=== PATIENT | female | born 1995 | race Caucasian/White ===

== ENCOUNTER 2021-05-17 09:06 | Emergency (ER) | payer BC ==
--- NOTE | 2021-05-17 09:15 | EDM.PDOC ---
ED HPI GENERAL MEDICAL PROBLEM - General Chief Complaint: Allergic Reaction Stated Complaint: ALLERGIC RX Time Seen by Provider: 05/17/21 09:14 Source of Information: Reports: Patient History Limitations: Reports: No Limitations - History of Present Illness INITIAL COMMENTS - FREE TEXT/NARRATIVE: 25-year-old female presents to the ED after being stung by an insect left anterior lateral lower thigh at about 0600 hrs. this morning.. This caused her to feel very short of breath with throat closure and feeling lightheaded within minutes of being stung. She did not see what stung her and she was stung through her clothing. She has had previous wasp stings with no serious reactions. She does not have asthma. At present she is still feeling lightheaded with thickening in her throat. Feeling slightly dizzy. She has not yet eaten today. She has not taken any Benadryl this morning. Onset: Today, Sudden Onset Date: 05/17/21 Onset Time: 06:00 Duration: Hour(s):, Constant. No: Getting Worse Location: Reports: Neck (Feeling throat some degree of throat closure dizzy lightheaded), Generalized Quality: Denies: Ache, Burning, Dull, Pressure, Same as Previous Episode, Sharp Severity: Moderate Improves with: Reports: None Worsens with: Reports: None Context: Reports: Other (Check standing likely hymenoptera likely wasp). Denies: Activity, Exercise, Lifting, Sick Contact, Trauma Associated Symptoms: Reports: Malaise, Shortness of Breath, Other (Throat closure). Denies: Confusion, Chest Pain, Cough, cough w sputum, Diaphoresis, Fever/Chills, Headaches, Nausea/Vomiting, Rash, Seizure, Syncope Treatments [employer]: Reports: Other (see below) (None.) - Related Data Allergies Allergy/AdvReac Type Severity Reaction Status Date / Time No Known Allergies Allergy Verified 05/17/21 09:14 Home Meds: Home Meds predniSONE [Prednisone] 20 mg PO BID #6 tablet 05/17/21 [Rx] ED ROS ALLERGIC REACTION - Review of Systems Review Of Systems: See Below Constitutional: Reports: Malaise. Denies: Fever, Chills HEENT: Reports: Throat Swelling (Feeling of throat closure.) Respiratory: Reports: Shortness of Breath ( Occultly swallowing.). Denies: Wheezing, Pleuritic Chest Pain, Cough, Sputum, Hemoptysis Cardiovascular: Reports: No Symptoms Endocrine: Reports: No Symptoms GI/Abdominal: Reports: No Symptoms. Denies: Diarrhea : Reports: No Symptoms Musculoskeletal: Reports: No Symptoms Skin: Reports: Other (Only redness and soreness at site of insect sting.) Neurological: Reports: No Symptoms Psychiatric: Reports: Anxiety Hematologic/Lymphatic: Reports: No Symptoms Immunologic: Reports: No Symptoms ED EXAM GENERAL NO PERIP PULSE - Physical Exam Exam: See Below Exam Limited By: No Limitations General Appearance: Alert, WD/WN, Anxious, Mild Distress, Other (Temperature is 36.4 degrees. Heart rate was 110 and sinus at the bedside. Respiratory to 16 with O2 sats of 98% room air. BP 1 6685.) Eye Exam: Bilateral Eye: Normal Inspection (No blepharal pallor. No scleral icterus.), Periorbital Changes (Slight swelling of her upper eyelids appreciated.) Nose: Normal Inspection Throat/Mouth: Normal Inspection, Normal Lips, Normal Oropharynx, Other Head: Atraumatic (Saundra and floor the mouth are normal. Tongue is not swollen.), Normocephalic Neck: Normal Inspection, Supple, Non-Tender, Full Range of Motion. No: Lymphadenopathy (L), Lymphadenopathy (R) Respiratory/Chest: No Respiratory Distress, Lungs Clear, Normal Breath Sounds, No Accessory Muscle Use. No: Wheezing Cardiovascular: Normal Peripheral Pulses, Regular Rate, Rhythm, No Edema, No Murmur, No Rub, Tachycardia GI/Abdominal: Normal Bowel Sounds, Soft, Non-Tender, No Organomegaly, No Mass, Pelvis Stable Extremities: Other (Light erythema and localized swelling left lower anterior lateral thigh at site of sting which is still) Neurological: Alert ( burning a good deal.), Oriented, CN II-XII Intact, Normal Cognition Psychiatric: Normal Mood, Anxious Skin Exam: Warm, Dry, Intact, Normal Color Course - Vital Signs Last Recorded V/S: Last Vital Signs Temp 36.4 C 05/17/21 09:12 Pulse 110 H 05/17/21 09:12 Resp 16 05/17/21 09:12 BP 166/85 H 05/17/21 09:12 Pulse Ox 98 05/17/21 09:12 - Orders/Labs/Meds Orders: Active Orders 24 hr Category Date Time Status Sodium Chloride 0.9% [Normal Saline] 1,000 ml Med 05/17/21 09:30 Active IV ASDIRECTED Medication Orders Sodium Chloride (Normal Saline) 1,000 mls @ 250 mls/hr IV ASDIRECTED TAMIKO Last Admin: 05/17/21 09:40 Dose: 250 mls/hr Documented by: MYRA Meds: Medications Generic Name Dose Route Start Last Admin Trade Name Freq PRN Reason Stop Dose Admin Sodium Chloride 1,000 mls @ 250 mls/hr 05/17/21 09:30 05/17/21 09:40 Normal Saline IV 250 mls/hr ASDIRECTED TAMIKO Administration Discontinued Medications Generic Name Dose Route Start Last Admin Trade Name Freq PRN Reason Stop Dose Admin Diphenhydramine HCl 25 mg 05/17/21 09:20 05/17/21 09:40 Diphenhydramine 50 Mg/Ml Sdv IVPUSH 05/17/21 09:21 25 mg ONETIME ONE Administration Famotidine 20 mg 05/17/21 09:19 05/17/21 09:42 Famotidine 20 Mg/2 Ml Sdv IVPUSH 05/17/21 09:20 20 mg ONETIME ONE Administration Methylprednisolone Sodium Succinate 125 mg 05/17/21 09:20 05/17/21 09:41 Methylprednisolone Sodium Succinate 125 Mg/2 Ml Sdv IVPUSH 05/17/21 09:21 125 mg ONETIME ONE Administration - Radiology Interpretation Free Text/Narrative:: 25-year-old female presents to the ED for evaluation of a unknown insect sting left lower anterior lateral thigh. She developed symptoms within a couple minutes of the sting feeling short of breath lightheaded dizzy and faint. Associated mild shortness of breath. Slight sting occurred around 0600 hrs. this morning and she did not see what stung her. She does have erythema and swelling left lateral thigh with a localized reaction suspicious for hymenoptera sting likely a wasp. Lungs were clear to auscultation percussion. Oropharynx is clear with no stridor and no swelling of the uvula tongue or floor the mouth. She'll be given Solu-Medrol 125 mg IV with Pepcid 20 mg IV and Benadryl 50 mg IV. - Re-Assessments/Exams Free Text/Narrative Re-Assessment/Exam: 05/17/21 10:00: She is not feeling any worse. No hives have broken out. She still feels a little bit of dyspnea. No further throat closure. Inspection of t he insect sting site still reveals a mild localized reaction without a wheal. Will monitor for another half hour. 05/17/21 10:29 patient is doing well at this point time. She continues to have a localized reaction to the hymenoptera sting left lateral lower thigh. She will use Motrin as needed for pain relief. Avoid placed on prednisone 20 mg twice daily with the first tablet to be taken after supper tonight. She will use Benadryl 50 mg by mouth every 6 hours as needed for any worsening shortness of breath or trouble swallowing. This is unlikely to happen once the Solu-Medrol starts to work. Note given to excuse her from work today. Departure - Departure Time of Disposition: 10:31 Disposition: Home, Self-Care 01 Condition: Fair Clinical Impression: Systemic reaction to hymenoptera sting - Discharge Information *PRESCRIPTION DRUG MONITORING PROGRAM REVIEWED*: Not Applicable *COPY OF PRESCRIPTION DRUG MONITORING REPORT IN PATIENT SAGE: Not Applicable Prescriptions: predniSONE [Prednisone] 20 mg PO BID #6 tablet Referrals: PCP,None [Primary Care Provider] - Forms: ED Department Discharge, ED Return to Work/School Form Additional Instructions: Evaluation in the emergency room this morning in regard to suspected wasp sting to the left lower lateral thigh which produced systemic signs of illness within a few minutes of being stung. This means you start to feel lightheaded dizzy and associated throat closure with some shortness of breath. On examination here two and half hours after being stung lungs were clear with no wheezing. Tongue uvula and floor the mouth were normal with good air entry. You never did develop any hives. Blood pressure was satisfactory. You were given Benadryl 50 mg IV with Pepcid 20 mg IV and Solu-Medrol 125 mg IV. You can still take Motrin 600 mg every 6 hours if needed for pain from the insect sting site which is usually for 24 hours. Suggest off work today due to the above medications being given. You will need to purchase some Benadryl and have it on hand. May need 50 mg every 6 hours if you break out in itch or rash or develop any further signs of shortness of breath or throat closure. Usually once the steroids Solu-Medrol starts to work within 2 to 4 hours no further symptoms are likely to occur. You will need to take medication prednisone 20 mg twice daily with the first tablet taken after supper tonight. It should be taken for 3 days usually with breakfast and supper. Return to medical care if you feel any worsening of shortness of breath or swallowing. Of course try and avoid all further potential stings from hymenoptera. I would not recommend an EpiPen at this time. I would suggest having Benadryl around either in glove compartment of your car purse or at home to be taken immediately 50 mg if you get stung by bee or wasp in the future. Sepsis Event Note (ED) - Focused Exam Vital Signs: Vital Signs Temp Pulse Resp BP Pulse Ox 05/17/21 09:12 36.4 C 110 H 16 166/85 H 98 - My Orders Last 24 Hours: My Active Orders 05/17/21 09:30 Sodium Chloride 0.9% [Normal Saline] 1,000 ml IV ASDIRECTED - Assessment/Plan Last 24 Hours: My Active Orders 05/17/21 09:30 Sodium Chloride 0.9% [Normal Saline] 1,000 ml IV ASDIRECTED
[2021-05-17] MEDS ORDERED: Famotidine 20 MG/2 ML SDV IVPUSH ONE (09:19)
[2021-05-17] MEDS ORDERED: diphenhydrAMINE 50 MG/ML SDV IVPUSH ONE (09:20)
[2021-05-17] MEDS ORDERED: methylPREDNISolone Sodium Succinate 125 MG/2 ML SDV IVPUSH ONE (09:20)
[2021-05-17] MEDS ORDERED: Sodium Chloride 0.9% 1,000 ML IV SCH (09:30)
== END 2021-05-17 10:45 | disposition home or self-care (01) ==
LOC: JD.ED 09:06
DX: T63.481A Toxic effect of venom of other arthropod, accidental (unintentional), initial encounter (principal)
CPT/HCPCS: 96374; 96375; 99282; J1200; J2930; J3490; J7030; 99283